=== PATIENT | male | born 1995 | race Asian ===

== ENCOUNTER 2017-09-01 16:34 | Emergency (ER) | payer OTHER ==
[2017-09-01 16:44] VITALS: BP 139/93
--- NOTE | 2017-09-01 17:08 | ED Physician Documentation ---
History of Present Illness - Stated complaint Stated Complaint: RT MIDDLE FINGER INJURY - Chief complaint Chief Complaint: Ext Problem - History obtained from History obtained from: Patient - History of Present Illness Timing: How many days ago (4) - Additonal information Additional information: 22-year-old male went bowling about 4 days ago and he has since developed some swelling to the tip of his right middle finger. Fingertip is tense red and swollen. He does not remember injuring the finger at all. He has not had fever. He feels no fluctuance to the area. Review of Systems Constitutional: denies: Fever Ears: denies: Ear pain Nose: denies: Congestion Throat: denies: Sore throat Respiratory: denies: Cough GI: denies: Vomiting Skin: denies: Rash, Laceration (s) Musculoskeletal: reports: Extremity pain, Extremity swelling. denies: Neck pain , Back pain Neurologic: denies: Generalized weakness, Focal weakness, Numbness PD PAST MEDICAL HISTORY - Present Medications Home Medications: Ambulatory Orders Medication Instructions Recorded Confirmed HYDROcod/ACETAM 5/325 [[place] 5/325] 1 - 2 ea PO Q6H PRN #15 tablet 09/01/17 Sulfamethoxazole/Trimethoprim 1 each PO BID #14 tablet 09/01/17 [Sulfamethoxazole-Tmp Ds Tablet] - Allergies Allergies/Adverse Reactions: Allergies Allergy/AdvReac Type Severity Reaction Status Date / Time No Known Drug Allergies Allergy Verified 09/01/17 16:44 PD ED PE NORMAL - Vitals Vital signs reviewed: Yes (hypertensive ) - General General: Alert and oriented X 3, No acute distress, Well developed/nourished - HEENT HEENT: Atraumatic, PERRL, EOMI - Respiratory Respiratory: No respiratory distress - Derm Derm: Normal color, Warm and dry, No rash - Extremities Extremities: No deformity, Other (There is tense swelling to the tip of the right middle finger and the finger is markedly tender and there is overlying erythema. There is no fluctuance. ) - Neuro Neuro: No motor deficit, No sensory deficit Eye Opening: Spontaneous Motor: Obeys Commands Verbal: Oriented GCS Score: 15 - Psych Psych: Normal mood, Normal affect Results - Vitals Vitals: Vital Signs - 24 hr 09/01/17 16:38 Temperature 36.7 C Heart Rate 71 Respiratory 17 Rate Blood Pressure 139/93 H O2 Saturation 100 Oxygen O2 Source Room air PD MEDICAL DECISION MAKING - ED course Complexity details: considered differential, d/w patient ED course: 22-year-old male with a swollen tense and tender right middle finger appears to have a felon. There is no fluctuance to the area and bedside ultrasound examination of the tip of the finger reveals no evidence of fluid collection. He is placed on septra and pain medication with instructions to follow-up for development of fluctuance. Departure - Departure Disposition: 01 Home, Self Care Clinical Impression: Felon of finger of right hand Condition: Stable Instructions: ED Staph Infec Abx Tx Only Follow-Up: [facility] [Provider Group] Prescriptions: HYDROcod/ACETAM 5/325 [[place] 5/325] 1 - 2 ea PO Q6H PRN #15 tablet PRN Reason: Pain Sulfamethoxazole/Trimethoprim [Sulfamethoxazole-Tmp Ds Tablet] 1 each PO BID # 14 tablet Forms: Activity restrictions
== END 2017-09-01 17:47 | disposition home or self-care (01) ==
LOC: ED 16:34
DX: L03.011 Cellulitis of right finger (principal)
CPT/HCPCS: 99283

== ENCOUNTER 2019-01-02 08:51 | Outpatient (CLI) | payer OTHER ==
[2019-01-02 12:45] VITALS: BP 135/98
--- NOTE | 2019-01-02 12:45 | SLEEP CARE CONSULTATION ---
Information from patient questionnaire entered by Glendy Conte. I have reviewed and concur with the information entered by Glendy Conte. This document represents the service I personally performed and the decisions made by me, Avis Vargas MD, [facility]. History of Present Illness Reason for Visit: New patient Chief Complaint: reports: Unrefreshed sleep, Excessive daytime sleepiness, Fatigue Duration of Symptoms: about 12 years Usual bedtime: 10-11 pm Time it takes to fall asleep: 15-30 mins Snores at night: Yes Observed to quit breathing while asleep: No Sleeps alone due to snoring: No Number of times waking at night: 2-3 Reasons for waking at night: reports: Other Toss, Turn, or Twitch while sleeping: Yes Recalls having dreams: Yes Usually gets out of bed at: 5-5:20 am Feels refreshed in the morning: No Morning headache: Yes Sleepy or fatigued during the day: Yes Ever fallen asleep while driving: Yes Takes day naps: Yes Dreams during day naps: Yes Prior sleep studies: No Additional HPI information: I had the pleasure of seeing Mr. Arvizu today regarding possible sleep- disordered breathing. The patient complains of loud snore. Nobody has seen him quit breathing at night. However, he sleeps alone. His father has obstructive sleep apnea-hypopnea and uses a CPAP. His sister and mother snore loudly. 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 Patient is Single and lives in [place]. Have you smoked in the past 12 months: No Alcohol use: Yes Alcohol amount and frequency: 2-3 drinks 1-2 times a week Caffeine use: Yes Caffeine amount and frequency: 1-2 a day Family History Family history of sleep disordered breathing: Yes Allergies and Home Medications Drug allergies reviewed: Yes Home medication list reviewed: Yes Allergy and home medication list: MED: Citalopram Review of Systems Cardiovascular: denies: high blood pressure, palpitations, chest pain, irregular heart rate or pulse, leg or foot swelling, have to sleep sitting up, other Respiratory: denies: shortness of breath, wheeze, sputum production, chronic cough, other Gastrointestinal: reports: nausea Neurological: denies: headaches, seizure, head trauma, disorientation, speech dysfunction, gait or balance problems, fainting or unconsciousness, other Psychiatric: reports: anxiety, depression Ear/Nose/Throat: reports: tonsillectomy. denies: nasal congestion, sinus problems, nose bleeds, dry mouth/throat, hoarseness, injury to nose, wisdom teeth removed, other Endocrine: reports: sluggishness Musculoskeletal: denies: joint pain, neck pain, back pain, joint swelling, muscle pain or cramping, mobility problems, other Immunologic: reports: other (Adnoids removed) Physical Exam Vital signs obtained and entered by: Dr. Vargas Blood Pressure: 135/98 Cuff size: regular Heart Rate: 64 O2 Saturation: 97 Height: 5 ft 6 in Weight: 150 lb Body Mass Index: 24.2 BMI Classification: Healthy weight Neck circumference: 15 Mood/affect: normal HEENT: No craniofacial malformation Nostrils: patent to airflow Turbinates: normal Septum: midline Mouth and throat: narrow oropharynx Soft palate: long Hard palate: normal Uvula: normal Uvula visualization: 50% Mallampati Class II Tongue: normal in size Tonsils: absent bilaterally Chin and jaw: normal size and position Neck: normal w/o lymphadenopathy or thyromegaly Heart: regular rate and rhythm Lungs: clear bilaterally Abdomen: soft Extremities: no edema or clubbing Neurologic: intact Impression and Plan IMPRESSION: 1. Suspected Obstructive Sleep Apnea-Hypopnea Syndrome, as suggested by history of loud and irregular snoring, frequent awakenings during the night, unrefreshed sleep, morning headache, cognitive impairment, and daytime hypersomnolence. Narrow oropharynx is a common predisposing factor for obstructive sleep apnea- hypopnea syndrome. Pathophysiology of sleep-disordered breathing was discussed. I recommend proceeding to polysomnography to confirm the diagnosis and to assess severity. I informed the patient of what the sleep studies involve and after some discussion, he agreed to proceed. Plan: 1. Schedule polysomnography and return in 1 to weeks after the study to discuss result and initiate therapy. 2. Avoid long distance driving or when feeling sleepy. 3. Avoid alcohol, sedative and muscle relaxant around bedtime. I spent 100% of the 15 minute visit [id number] with the patient with greater than 50% of this was spent time counseling the patient and coordination of care.
== END 2019-01-02 08:52 | disposition home or self-care (01) ==
LOC: SC 08:51
PROVIDERS: ATTEND Internal Medicine Pulmonary Disease
DX: R06.83 Snoring (principal); R51 Headache; R41.89 Other symptoms and signs involving cognitive functions and awareness; G47.8 Other sleep disorders; G47.10 Hypersomnia, unspecified
CPT/HCPCS: 99203; 99212

== ENCOUNTER 2019-02-01 20:17 | Outpatient (CLI) | payer OTHER | END 2019-02-01 20:18 | disposition home or self-care (01) | LOC: SC 20:17 | PROVIDERS: ATTEND Internal Medicine Pulmonary Disease | DX: G47.8 Other sleep disorders (principal); G47.10 Hypersomnia, unspecified; R06.83 Snoring | CPT/HCPCS: 95810 ==

== ENCOUNTER 2019-02-28 13:40 | Outpatient (CLI) | payer OTHER ==
--- NOTE | 2019-02-28 15:02 | SLEEP CARE CONSULTATION ---
Information from patient questionnaire entered by Iveth Rios. I have reviewed and concur with the information entered by Iveth Rios. This document represents the service I personally performed and the decisions made by me, Rani Joya, RN, MSN, HUM[employer] SERVICES WORKER. History of Present Illness Reason for follow up: with sleep study Prior sleep studies: Yes Year and Where: 2018 [facility] additional information: CHELLY SARMIENTO returns for follow up of the recently performed polysomnography. I explained the pathophysiology behind obstructive sleep apnea. Patient does not have sleep apnea and was advised how weight gain could increase the risk of developing sleep apnea in the future. I strongly encouraged the patient not to gain weight. His father has apnea and uses a CPAP. His mother and sister snore. Patient has mild to moderate snoring. Snoring can be reduced by weight loss but he is normal weight Snoring can also be treated with an oral appliance from a dentist. Advised to check insurance coverage. In addition, an ENT evaluation can be do to see if other treatment is indicated especially since he has a deviated septum. He states he saw an ENT recently for evaluation and advised repair of deviated septum as well as an ear procedure. Patient counseled not drink alcohol less than 4 hours before bedtime as it can increase snoring and apnea. Patient was cautioned about risks of drowsy driving until sleepiness symptoms resolve. Patient denies drowsy driving. AAS patient education on snoring and sleep apnea given and reviewed at last visit. Patient states he gets 8-10 hours of sleep daily and does not wake refreshed most times. With further discussion , he is more refreshed with less sleep. Current sleep times are : bedtime 12:30am and wake up 8:30 - 10:30am - alarm set at 9:30. Sleep Study - Polysomnography Polysomnography findings: The quality of the study is good. The patient had slightly reduced sleep efficiency due to a prolonged awakening after the bathroom break. Except for mild sleep fragmentation, the sleep architecture was normal. Respiratory monitoring showed no significant sleep disordered breathing (AHI = 0.7) or hypoxia (leda oxygen saturation of 92%). The patient slept mostly supine (supine AHI = 0.3; non-supine = 1.22). Snore was light to moderate in intensity. There was no significant periodic leg movement of sleep. Cardiac rhythm was normal sinus rhythm without significant arrhythmia. No abnormal behavior (parasomnia) observed during the night. Subjective Initial [place] Sleepiness Scale score: 12 Current [place] Sleepiness Scale score: 15 Allergies and Home Medications Known drug allergies: No Home medication list reviewed: Yes Allergy and home medication list: lexapro 15mg daily Review of Systems Review of systems same as previous: Yes Physical Exam Blood Pressure: 90/60 Cuff size: regular Heart Rate: 86 O2 Saturation: 98 Height: 5 ft 6 in Weight: 146 lb 6.4 oz Body Mass Index: 23.6 BMI Classification: Healthy weight Impression and Plan Snoring but no significant sleep disordered breathing. Patient advised that often weight loss will reduce snoring as well as apnea risk but is at normal weight. So advised not to gain weight. An oral appliance can also be used for snoring. This would require a dental consultation. Patient cautioned not to use other online appliances as can cause bite issues. Patient is advised to check if insurance will cover. He would like instead to pursue the ENT consult to treat his deviated septum he just saw. Snoring adn difficulty breathing through the nose can disrupt sleep and contribute to sleep fragmentation and daytime fatigue and patient encouraged to pursue repair of deviated septum. 2. Fatigue that could be related to current irregular wake time and too much sleep as well as disruption of sleep from deviated septum. He has felt more refreshed when he has had less versus more sleep. Thus I explained how he could be sleeping too much and waking in a deeper sleep stage by falling back to sleep. He is advised to restrict time in bed to 8 hours. Most people require 7- 9 hours of sleep. I explained the importance of a regular bedtime and how this affects his homeostatic sleep drive and circadian rhythm. He is also advised that when he gets up at the same time and then goes to sleep when sleepy, he will be able to better determine his average sleep hour need. A sleep log was given for him to complete to be assist him be aware of his sleep schedule and to change it as instructed. He is to follow up if needed. He also reports stress, which can contribute to fatigue as well as difficulty sleeping at night. He is currently taking an antidepressant and changed job positions to reduce stress but has had no counseling. I explained how counseling can also help reduce stress by learning life skills to manage better. Thus he was advised to follow up with his PCP for further evaluation of fatigue and stress management. AASM How to sleep better pamphlet given and reviewed for reference of healthy sleep practices to achieve better sleep. * Sleep log * regulate wake time * Avoid alcohol consumption near bedtime * The patient is cautioned about driving until sleepiness is completely resolved. * Follow up with his PCP for further evaluation of fatigue, deviated septum repair and stress management. * Return as needed. I spent 100% of this 35 minute visit face to face with the patient with greater than 50% of this was spent time counseling the patient and coordination of care.
[2019-02-28 15:03] VITALS: BP 90/60
== END 2019-02-28 13:41 | disposition home or self-care (01) ==
LOC: SC 13:40
PROVIDERS: ATTEND Nurse Practitioner Family
DX: R06.83 Snoring (principal); R53.83 Other fatigue; J34.2 Deviated nasal septum
CPT/HCPCS: 99212; 99214

== ENCOUNTER 2019-05-22 10:00 | Emergency (ER) | payer OTHER ==
--- NOTE | 2019-05-22 12:28 | ED Physician Documentation ---
PD HPI FOCAL NEURO - Stated complaint Stated Complaint: HEAD INJ - Chief complaint Chief Complaint: Neuro - History obtained from History obtained from: Patient - History of Present Illness Timing - onset: How many days ago (3) - Additional information Additional information: Patient comes emergency department complaining of headache, dizziness, and photophobia with mild nausea since falling while playing basketball 3 days ago and hitting his head on the hard floor. Patient states he did not lose consciousness at that time. He states he was not injured in any other way. He is otherwise healthy. No recent head injury otherwise. Patient denies any visual changes, but states that he feels as though his tracking is slow. 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 He states he slept about 40 hours over the weekend and that this helped him to feel somewhat better, but that he does not feel he can return to his duties at work yet. Patient is employed by the [employer]. Patient denies any other symptoms of illness. He has not been febrile. He has had no vomiting with his nausea. No other complaints at this time. Review of Systems Ten Systems: 10 systems reviewed and negative Constitutional: reports: Reviewed and negative Eyes: reports: Reviewed and negative Ears: reports: Reviewed and negative Nose: reports: Reviewed and negative Throat: reports: Reviewed and negative Cardiac: reports: Reviewed and negative Respiratory: reports: Reviewed and negative GI: reports: Nausea, Reviewed and negative : reports: Reviewed and negative Skin: reports: Reviewed and negative Musculoskeletal: reports: Reviewed and negative Neurologic: reports: Headache, Head injury, Reviewed and negative Psychiatric: reports: Reviewed and negative Endocrine: reports: Reviewed and negative Immunocompromised: reports: Reviewed and negative PD PAST MEDICAL HISTORY - Past Medical History Past Medical History: Yes Psych: Depression, Anxiety - Past Surgical History Past Surgical History: Yes General: Other HEENT: Tonsil/Adenoidectomy - Present Medications Home Medications: Ambulatory Orders Medication Instructions Recorded Confirmed HYDROcod/ACETAM 5/325 [[place] 5/325] 1 - 2 ea PO Q6H PRN #15 tablet 09/01/17 Sulfamethoxazole/Trimethoprim 1 each PO BID #14 tablet 09/01/17 [Sulfamethoxazole-Tmp Ds Tablet] - Allergies Allergies/Adverse Reactions: Allergies Allergy/AdvReac Type Severity Reaction Status Date / Time No Known Drug Allergies Allergy Verified 09/01/17 16:44 - Social History Does the pt smoke?: No Smoking Status: Never smoker - Immunizations Immunizations are current?: Yes PD ED PE NORMAL - Vitals Vital signs reviewed: Yes - General General: Alert and oriented X 3, No acute distress - HEENT HEENT: PERRL - Neck Neck: Supple, no meningeal sign - Cardiac Cardiac: RRR, No murmur - Respiratory Respiratory: Clear bilaterally - Abdomen Abdomen: Soft, Non tender, Non distended - Derm Derm: Warm and dry - Extremities Extremities: No deformity - Neuro Neuro: Alert and oriented X 3 - Psych Psych: Normal mood, Normal affect Results - Vitals Vitals: Vital Signs - 24 hr 05/22/19 10:06 Temperature 36.9 C Heart Rate 63 Respiratory 18 Rate Blood Pressure 123/89 H O2 Saturation 98 Oxygen O2 Source Room air PD MEDICAL DECISION MAKING - ED course Complexity details: reviewed old records, considered differential, d/w patient ED course: I discussed with the patient that his symptoms are consistent with concussion and that the fact that he is beginning to feel better and it has been 3 days is a good sign. There is no evidence of a more serious head injury at this time. Patient has no focal neurologic deficits. I have given him a work note and we have discussed symptomatic management at home. We have also discussed the usual indications for return. Departure - Departure Disposition: 01 Home, Self Care Clinical Impression: Concussion Qualifiers: Encounter type: initial encounter Loss of consciousness presence/duration: without LOC Qualified Code(s): S06.0X0A - Concussion without loss of consciousness, initial encounter Condition: Good Instructions: Concussion Forms: Activity restrictions
[2019-05-22 12:37] VITALS: BP 127/84
== END 2019-05-22 12:41 | disposition home or self-care (01) ==
LOC: ED 10:00
DX: S06.0X0A Concussion without loss of consciousness, initial encounter (principal); W19.XXXA Unspecified fall, initial encounter; Y93.67 Activity, basketball
CPT/HCPCS: 99282; 99284